=== PATIENT | male | born 1970 | race African-American/Black ===

== ENCOUNTER 2023-09-21 03:44 | Emergency (ER) | payer OTHER ==
[2023-09-21] MEDS ORDERED: Aspirin Chewable 81 MG TAB ONE (04:04)
[2023-09-21] MEDS ORDERED: Pantoprazole 40 MG VIAL ONE (04:11)
[2023-09-21 04:14] LABS: #Basophils 0.1 thou/uL (0.0-0.2); #Lymphocytes 1.7 thou/uL (1.20-3.40); #Monocytes 0.5 thou/uL (0.11-0.59); #Neutrophils 1.9 thou/uL (1.40-6.50); %Basophils 1.9 % (0.0-1.0); %Monocytes 12.5 % (0.0-10.0); %Neutrophils 44.6 % (42.0-75.0); Hematocrit 49.6 % (42.0-52.0); Hemoglobin 16.3 g/dL (14.0-18.0); Mean Corpuscular HGB CONC 32.9 g/dL (32.0-36.0); Mean Corpuscular Hemoglobin 26.5 pg (27.0-31.0); Mean Corpuscular Volume 80.6 fl (78.0-98.0); Mean Platelet Volume 7.5 fL (7.4-10.4); Platelet Count 264 10x3/uL (130-400); RBC Distribution Width 12.5 % (11.5-14.5); Red Blood Cell (RBC) Count 6.16 mill/uL (4.70-6.10); White Blood Cell (WBC) Count 4.3 10x3/uL (4.8-10.8)
[2023-09-21 04:28] LABS: Troponin I Less than 0.010 ng/mL (< 0.028)
[2023-09-21 04:29] LABS: ALT (SGPT) 44 U/L (8-55); AST (SGOT) 23 U/L (5-34); Albumin 4.1 g/dL (3.5-5.0); Alkaline Phosphatase 93 U/L (40-110); Anion Gap 14 mmol/L (10-20); BUN (Urea Nitrogen) 15 mg/dL (8.4-25.7); Bilirubin, Total 0.4 mg/dL (0.2-1.2); Calc. Creatinine Clearance 0 mL/min (70-130); Calcium 9.6 mg/dL (7.8-10.44); Carbon Dioxide 24 mmol/L (22-29); Chloride 103 mmol/L (98-107); Estimated GFR 103; Glucose 95 mg/dL (70-105); Lipase 15 U/L (8-78); Potassium 4.1 mmol/L (3.5-5.1); Protein, Total 8.1 g/dL (6.0-8.3); Sodium 137 mmol/L (136-145)
[2023-09-21] MEDS ORDERED: Acetaminophen 500 MG TAB ONE (06:46)
[2023-09-21 07:22] LABS: Troponin I Less than 0.010 ng/mL (< 0.028)
== END 2023-09-21 08:04 ==
LOC: NAV ERS 03:44 → EEVIPCON 03:44 → NAV ERS 08:04
DX: R07.89 Other chest pain (principal); K21.9 Gastro-esophageal reflux disease without esophagitis; Z79.899 Other long term (current) drug therapy
CPT/HCPCS: 36415; 71045; 80053; 83690; 84484; 85025; 85379; 93005; 94760; 96374; C9113